=== PATIENT | female | born 1995 | race Caucasian/White ===

== ENCOUNTER 2016-08-09 14:02 | Emergency (ER) | payer MEDICAID, OTHER ==
[~2016-08-09] VITALS: Ht 165.1 cm; Wt 66.0 kg
[2016-08-09 14:11] VITALS: Ht 165.1 cm; Wt 66.0 kg
[2016-08-09] MEDS ORDERED: ONDANSETRON 4 MG INJ IV STA (14:58)
[2016-08-09] MEDS ORDERED: KETOROLAC 30 MG INJ IV STA (14:58)
[2016-08-09 15:40] LABS: ADD SCAN DIFF NO
[2016-08-09 15:42] LABS: BASOPHILS % 0.2 % (0.0-2.0); EOSINOPHILS # 0.1 10^3/ul (0.0-0.5); EOSINOPHILS % 1.2 % (0.0-7.0); HEMATOCRIT 38.9 % (37.0-47.0); HEMOGLOBIN 13.4 g/dl (12.0-16.0); LYMPHOCYTES # 1.7 10^3/ul (0.8-2.9); LYMPHOCYTES % 20.8 % (15.0-51.0); MEAN CORPUSCULAR HEMOGLOBIN 30.7 pg (29.0-33.0); MEAN CORPUSCULAR HGB CONC 34.4 g/dl (32.0-37.0); MEAN CORPUSCULAR VOLUME 89.2 fl (82.0-101.0); MEAN PLATELET VOLUME 11.5 fl (7.4-10.4); MONOCYTE # 0.6 10^3/ul (0.3-0.9); MONOCYTES % 7.4 % (0.0-11.0); NEUTROPHIL # 5.7 10^3/ul (1.6-7.5); NEUTROPHILS % 70.2 % (39.0-77.0); PLATELET COUNT 221 10^3/UL (140-415); RED BLOOD COUNT 4.36 10^6/ul (4.20-5.40); RED CELL DISTRIBUTION WIDTH 13.1 % (11.5-14.5); WHITE BLOOD COUNT 8.2 10^3/ul (4.8-10.8)
[2016-08-09 15:52] LABS: ADD UMIC YES; URINE BILIRUBIN (Dip) NEGATIVE (NEGATIVE); URINE BLOOD (Dip) NEGATIVE (NEGATIVE); URINE COLOR LT. YELLOW (YELLOW); URINE GLUCOSE (Dip) NEGATIVE (NEGATIVE); URINE KETONES (Dip) NEGATIVE (NEGATIVE); URINE LEUKOCYTE ESTERASE (Dip) 1+ (NEGATIVE); URINE NITRITE (Dip) NEGATIVE (NEGATIVE); URINE TOTAL PROTEIN (Dip) TRACE (NEGATIVE); URINE UROBILINOGEN (Dip) 0.2 E.U./dL (0.1-1.0)
[2016-08-09 16:05] LABS: ALBUMIN 4.4 g/dl (3.3-4.9)
[2016-08-09 16:06] LABS: POTASSIUM 3.9 mmol/L (3.5-5.1)
[2016-08-09 16:08] LABS: BILIRUBIN,INDIRECT 0.3 mg/dl (0-1.1); BILIRUBIN,TOTAL 0.3 mg/dl (0.2-1.3); CREATININE 0.63 mg/dl (0.44-1.00)
[2016-08-09 16:09] LABS: ALBUMIN/GLOBULIN RATIO 1.22; CALCIUM 9.5 mg/dl (8.4-10.2)
[2016-08-09 16:19] LABS: SQUAMOUS EPITHELIAL CELL,UR MANY
[2016-08-09 16:20] LABS: BACTERIA,URINE MODERATE; URINE RBCS 0-2 /HPF (0)
[2016-08-09] MEDS ORDERED: NITR-58 PO (17:04)
[2016-08-09] MEDS ORDERED: ONDA4TAB14 PO (17:05)
--- NOTE | 2016-08-09 17:17 | ERD ---
ER Documentation Chief Complaint Date/Time DATE: 08/09/16 TIME: 17:13 Chief Complaint RIGHT LOWER QUADARANT PAIN,VOMITING HPI Patient is a 21-year-old female presents to the emergency department with right lower quadrant pain and vomiting. Patient states her symptoms been present for the last 3 days. Patient denies any radiation of pain. Patient states she has been taking ibuprofen with no alleviation of symptoms. Patient does report some urinary frequency and urgency. Patient denies any pain with bowel movements. Patient reports daily bowel movements. Patient reports chills however she denies any fevers. Patient denies any flank pain. No Recent travel. No sick contacts. LMP= 1 week ago. ROS All systems reviewed and are negative except as per history of present illness. Medications Home Meds Active Scripts Ondansetron (Ondansetron Odt) 4 Mg Tab.rapdis, 4 MG PO Q6H Y for NAUSEA AND/OR VOMITING, #10 TAB Prov:DOLLY LYONS PA-C 08/09/16 Nitrofurantoin Monohyd Macrocr* (Macrobid*) 100 Mg Capsr, 100 MG PO BID for 5 Days, CAP Prov:DOLLY LYONS PA-C 08/09/16 Allergies Allergies: Coded Allergies: No Known Allergy (Unverified , 08/09/16) PMhx/Soc Medical and Surgical Hx: pt denies Medical Hx, pt denies Surgical Hx Hx Alcohol Use: No Hx Substance Use: No Hx Tobacco Use: No Smoking Status: Never smoker Physical Exam Vitals Vital Signs Date Time Temp Pulse Resp B/P Pulse Ox O2 Delivery O2 Flow Rate FiO2 08/09/16 14:11 98.4 76 18 125/66 98 Physical Exam GENERAL: Well-developed, well-nourished female. Appears in no acute distress. HEAD: Normocephalic, atraumatic. EYES: Pupils are equally reactive bilaterally. EOMs grossly intact. No conjunctival erythema. ENT: Moist mucous membranes. No uvula deviation. No kissing tonsils. NECK: Supple. No meningismus. Normal range of motion of the neck. LUNG: Clear to auscultation bilaterally. No rhonchi, wheezing, rales or coarse breath sounds. HEART: Regular rate and rhythm. No murmurs, rubs or gallops. ABDOMEN: No scars, ecchymosis or rashes noted. Soft and nondistended. Tenderness to palpation in bilateral pelvic regions. Positive bowel sounds in all four quadrants. No rebound tenderness, no guarding. (-) McBurney's point tenderness. No CVA tenderness. EXTREMITIES: Equal pulses bilaterally. No peripheral clubbing, cyanosis or edema. No unilateral leg swelling. NEUROLOGIC: Alert and oriented. Moving all four extremities without any difficulty. Normal speech. Steady gait. SKIN: Normal color. Warm and dry. No rashes or lesions. Result Diagram: 08/09/16 1500 08/09/16 1500 Results 24 hrs Laboratory Tests Test 08/09/16 15:00 08/09/16 15:13 White Blood Count 8.210^3/ul Red Blood Count 4.3610^6/ul Hemoglobin 13.4g/dl Hematocrit 38.9% Mean Corpuscular Volume 89.2fl Mean Corpuscular Hemoglobin 30.7pg Mean Corpuscular Hemoglobin Concent 34.4g/dl Red Cell Distribution Width 13.1% Platelet Count 94202^3/UL Mean Platelet Volume 11.5fl Neutrophils % 70.2% Lymphocytes % 20.8% Monocytes % 7.4% Eosinophils % 1.2% Basophils % 0.2% Nucleated Red Blood Cells % 0.0/100WBC Neutrophils # 5.710^3/ul Lymphocytes # 1.710^3/ul Monocytes # 0.610^3/ul Eosinophils # 0.110^3/ul Basophils # 0.010^3/ul Nucleated Red Blood Cells # 0.010^3/ul Sodium Level 141mmol/L Potassium Level 3.9mmol/L Chloride Level 103mmol/L Carbon Dioxide Level 26mmol/L Anion Gap 16 Blood Urea Nitrogen 11mg/dl Creatinine 0.63mg/dl Glucose Level 93mg/dl Calcium Level 9.5mg/dl Total Bilirubin 0.3mg/dl Direct Bilirubin 0.00mg/dl Indirect Bilirubin 0.3mg/dl Aspartate Amino Transf (AST/SGOT) 16IU/L Alanine Aminotransferase (ALT/SGPT) 17IU/L Alkaline Phosphatase 63IU/L Total Protein 8.0g/dl Albumin 4.4g/dl Globulin 3.60g/dl Albumin/Globulin Ratio 1.22 Lipase 115U/L Urine Color LT. YELLOW Urine Clarity CLOUDY Urine pH 6.0 Urine Specific [place] 1.025 Urine Ketones NEGATIVE Urine Nitrite NEGATIVE Urine Bilirubin NEGATIVE Urine Urobilinogen 0.2 E.U./dL Urine Leukocyte Esterase 1+ Urine Microscopic RBC 0-2/HPF Urine Microscopic WBC 10-25/HPF Urine Squamous Epithelial Cells MANY Urine Bacteria MODERATE Urine Hemoglobin NEGATIVE Urine Glucose NEGATIVE% Urine Total Protein TRACE Current Medications Medications (Trade) Dose Ordered Sig/Shirlene Route PRN Reason Start Time Stop Time Status Last Admin Dose Admin Ondansetron HCl (Zofran Inj) 4 mg ONCE STAT IV 08/09/16 14:58 08/09/16 15:02 DC 08/09/16 15:17 Ketorolac Tromethamine (Toradol) 30 mg ONCE STAT IV 08/09/16 14:58 08/09/16 15:02 DC 08/09/16 15:17 Procedures/MDM ED COURSE: The patient was stable throughout ED course. I kept the patient and/or family informed of laboratory and diagnostic imaging results throughout the ED course. DIAGNOSTIC IMAGING: Read by radiologist. Patient: ERIK RICH : 1995 Age: 21 Sex: F MR #: [id number] DOS: 08/09/16 0000 Ordering MD: DOLLY LYONS PA-C Location: [facility] Room/Bed: PROCEDURE: US Pelvis CLINICAL INDICATION: Pelvic pain TECHNIQUE: Sonographic evaluation of the pelvis was performed utilizing both transabdominal and transvaginal technique. Curved array transabdominal transducer technique as well as a high frequency endovaginal probe was utilized. Images were reviewed on the high-resolution PACS workstation. COMPARISON: No prior studies are available for comparison. FINDINGS: The uterus is normal in size, echogenicity, and morphology measuring 7.5 x 4.7 x 6.1 cm in dimension. The uterus is retroverted in position. The endometrium measures x in diameter. There is an IUD in place within the body/ fundal portion of the endometrium, in perfect location. The right ovary measures 3.2 x 2.0 x 2.9 cm in dimension. The left ovary measures 3.3 x 1.9 x 2.2 cm in dimension. The ovaries are symmetric in size, echogenicity, and morphology. There are no adnexal masses. There is no significant free fluid in the pelvis. No other incidental abnormality is identified. IMPRESSION: 1. IUD in place, in good location. 2. Otherwise, normal pelvic ultrasound. RPTAT: PP .Luis Diaz MD, Date Time Electronically viewed and signed by .Luis Diaz MD, MD on 08/09/2016 17:48 .B/ CC: DOLLY LYONS PA-C MEDICAL DECISION MAKING: This is a 21 year old female who presents with lower abdominal pain and nausea x 3 days. Vital signs were reviewed. Patient was afebrile. CBC showed no evidence of systemic infection or severe anemia. CMP showed no evidence of electrolyte abnormalities, severe acidosis, alkalosis, renal failure , or liver disease. Lipase showed no evidence of acute pancreatitis. UA showed + leukocyte esterase and WBC. Sample may be contaminated, however given that the patient is symptomatic at this time, urine likely + for infection. Urine test was negative. Given these findings, the patient;s presentation is most consistent with urinary tract infection. I have a much lower clinical concern for pyelonephritis, nephrolithiasis, appendicitis, diverticulitis, constipation, urethritis, , ectopic , PID, ovarian torsion, or tubo-ovarian abscess. PRESCRIPTIONS: Macrobid, Zofran DISCHARGE: At this time, patient is stable for discharge and outpatient management. I have instructed the patient to follow-up with his/her primary care physician in 1-2 days. Patient should repeat UA in 2 weeks to check for resolution of urinary tract infection. If symptoms persist, patient may need to see a specialist for further examinations and testing. I have instructed the patient to promptly return to the ER at any time for any new or worsening symptoms including increased pain, fever, nausea, vomiting, urinary changes or weakness. The patient and/or family expressed understanding of and agreement with this plan. All questions were answered. Home care instructions were provided. Departure Diagnosis: Primary Impression: UTI (urinary tract infection) Urinary tract infection type: site unspecified Hematuria presence: without hematuria Qualified Code: N39.0 - Urinary tract infection without hematuria, site unspecified Condition: Stable Patient Instructions: Understanding Urinary Tract Infections (UTIs) Additional Instructions: Call your primary care doctor TOMORROW for an appointment during the next 1-2 days.See the doctor sooner or return here if your condition worsens before your appointment time. DOLLY LYONS PA-C Aug 09, 2016 17:17
--- NOTE | 2016-08-09 17:48 | RADRPT ---
PROCEDURE: US Pelvis CLINICAL INDICATION: Pelvic pain TECHNIQUE: Sonographic evaluation of the pelvis was performed utilizing both transabdominal and tr ansvaginal technique. Curved array transabdominal transducer technique as well as a high frequency endovaginal probe was utilized. Images were reviewed on the high-resolution PACS workstation. COMPARISON: No prior studies are available for comparison. FINDINGS: The uterus is normal in size, echogenicity, and morphology measuring 7.5 x 4.7 x 6.1 cm in dimension . The uterus is retroverted in position. The endometrium measures x in diameter. There is an IUD in place within the body/fundal portion of the endometrium, in perfect location. The right ovary measures 3.2 x 2.0 x 2.9 cm in dimension. The left ovary measures 3.3 x 1.9 x 2.2 c m in dimension. The ovaries are symmetric in size, echogenicity, and morphology. There are no adne xal masses. There is no significant free fluid in the pelvis. No other incidental abnormality is id entified. IMPRESSION: 1. IUD in place, in good location. 2. Otherwise, normal pelvic ultrasound. RPTAT: PP .Luis Diaz MD, Date Time Electronically viewed and signed by .Luis Diaz MD, on 08/09/2016 17:48 .B/
== END 2016-08-09 17:43 | disposition home or self-care (01) ==
LOC: FTE 14:02
DX: N39.0 Urinary tract infection, site not specified (principal); R11.10 Vomiting, unspecified; R10.2 Pelvic and perineal pain
CPT/HCPCS: 76830; 76856; 80053; 81001; 83690; 85025; J1885; J2405; 36415; 81003; 96374; 96375

== ENCOUNTER 2016-12-16 00:41 | Emergency (ER) | payer SELFPAY ==
[~2016-12-16] VITALS: Ht 162.6 cm; Wt 58.0 kg
[~2016-12-16 00:41] MED LIST: NITR-58 PO; ONDA4TAB14 PO
[2016-12-16 00:51] VITALS: Ht 162.6 cm; Wt 58.0 kg
[2016-12-16 01:57] LABS: URINE BLOOD (Dip) POC Negative (NEGATIVE)
--- NOTE | 2016-12-16 02:09 | ERD ---
ER Documentation Chief Complaint Date/Time DATE: 12/16/16 TIME: 02:07 Chief Complaint bib self, cc: dysuria and urinary frequency, "I feel like I have a UTI" HPI 21-year-old female presents here in emergency department for complaints of urinary urgency and frequency dysuria that started today. Patient is complaining of pain burning pain 4/10 scale, worse upon urination. Patient denies any hematuria. Patient denies any flank pain. Patient denies any fever or chills. Patient denies any abdominal pain. ROS All systems reviewed and are negative except as per history of present illness. Medications Home Meds Active Scripts Ondansetron (Ondansetron Odt) 4 Mg Tab.rapdis, 4 MG PO Q6H Y for NAUSEA AND/OR VOMITING, #10 TAB Prov:DOLLY LYONS PA-C 08/09/16 Nitrofurantoin Monohyd Macrocr* (Macrobid*) 100 Mg Capsr, 100 MG PO BID for 5 Days, CAP Prov:DOLLY LYONS PA-C 08/09/16 Allergies Allergies: Coded Allergies: No Known Allergy (Unverified , 08/09/16) PMhx/Soc Medical and Surgical Hx: pt denies Medical Hx, pt denies Surgical Hx History of Surgery: No Anesthesia Reaction: No Hx Neurological Disorder: No Hx Respiratory Disorders: No Hx Cardiac Disorders: No Hx Psychiatric Problems: No Hx Miscellaneous Medical Probl: No Hx Alcohol Use: No Hx Substance Use: No Hx Tobacco Use: No Smoking Status: Never smoker FmHx Family History: No coronary disease, No diabetes, No other Physical Exam Vitals Vital Signs Date Time Temp Pulse Resp B/P Pulse Ox O2 Delivery O2 Flow Rate FiO2 12/16/16 00:51 99.3 75 18 121/61 99 Physical Exam GENERAL: The patient is well developed and appropriate for usual state of health, in no apparent distress. CHEST: Clear to auscultation bilaterally. There are no rales, wheezes or rhonchi. HEART: Regular rate and rhythm. No murmurs, clicks, rubs or gallops. No S3 or S4. ABDOMEN: Soft, nontender and nondistended. Good bowel sounds. No rebound or guarding. No gross peritonitis. No gross organomegaly or masses. No Hassan sign or McBurney point tenderness. BACK: No midline or flank tenderness. EXTREMITIES: Equal pulses bilaterally. There is no peripheral clubbing, cyanosis or edema. No focal swelling or erythema. Full range of motion. Grossly neurovascularly intact. NEURO: Alert and oriented. Cranial nerves 2-12 intact. Motor strength in all 4 extremities with 5/5 strength. Sensation grossly intact. Normal speech and gait. SKIN: There is no apparent rash or petechia. The skin is warm and dry. HEMATOLOGIC AND LYMPHATIC: There is no evidence of excessive bruising or lymphedema. No gross cervical, axillary, or inguinal lymphadenopathy. Results 24 hrs Laboratory Tests Test 12/16/16 02:03 Bedside Urine pH (LAB) 7.0 Bedside Urine Protein (LAB) Negative Bedside Urine Glucose (UA) Negative Bedside Urine Ketones (LAB) Negative Bedside Urine Blood Negative Bedside Urine Nitrite (LAB) Negative Bedside Urine Leukocyte Esterase (L 1+ Procedures/MDM Medical Decision Making: Patients symptoms are consistent with urinary tract infection. There is low suspicion for pyelonephritis. There is low suspicion for abdominal emergencies at this time. Patients abdominal exam is normal. There is low suspicion for sepsis. Patient appears well and is hemodynamically stable. Disposition: Home. Stable Prescription ciprofloxacin, pyridium Instructions: Patient is advised to take medications as prescribed. Patient is advised to rest, increase fluid intake and do good perineal hygiene. Patient is advised that if symptoms are worse, severe abdominal pain, uncontrolled vomiting , high fever, severe flank pain, worst signs and symptoms, to return to the emergency department immediately. Otherwise, patient can follow up with primary care doctor in 5-7 days. Departure Diagnosis: Primary Impression: UTI (urinary tract infection) Urinary tract infection type: acute cystitis Hematuria presence: without hematuria Qualified Code: N30.00 - Acute cystitis without hematuria Condition: Stable Patient Instructions: Understanding Urinary Tract Infections (UTIs) Additional Instructions: Patient is advised to take medications as prescribed. Patient is advised to rest, increase fluid intake and do good perineal hygiene. Patient is advised that if symptoms are worse, severe abdominal pain, uncontrolled vomiting, high fever, severe flank pain, worst signs and symptoms, to return to the emergency department immediately. Otherwise, patient can follow up with primary care doctor in 5-7 days. JUSTA VÁZQUEZ NP Dec 16, 2016 02:09
[2016-12-16] MEDS ORDERED: PHEN-538 PO (02:13)
[2016-12-16] MEDS ORDERED: CIPR500T4 PO (02:13)
== END 2016-12-16 02:30 | disposition home or self-care (01) ==
LOC: FTE 00:41
DX: N30.00 Acute cystitis without hematuria (principal)
CPT/HCPCS: 81003; 99283

== ENCOUNTER 2017-04-13 19:10 | Emergency (ER) | payer MEDICAID, OTHER ==
[~2017-04-13] VITALS: Ht 162.6 cm; Wt 69.9 kg
[~2017-04-13 19:10] MED LIST changes: +CIPR500T4 PO; +PHEN-538 PO
[2017-04-13 19:13] VITALS: Ht 162.6 cm; Wt 69.9 kg
[2017-04-13] MEDS ORDERED: ONDANSETRON (ODT) 4 MG TAB ODT STA (20:44)
[2017-04-13] MEDS ORDERED: ACETAMINOPHEN 325 MG TAB PO ONE (21:00)
[2017-04-13 21:09] LABS: URINE BLOOD (Dip) POC Negative (NEGATIVE)
[2017-04-13] MEDS ORDERED: CEPH-443 PO (21:27)
[2017-04-13] MEDS ORDERED: ONDA4TAB14 PO (21:27)
--- NOTE | 2017-04-13 21:34 | ERD ---
ER Documentation Chief Complaint Chief Complaint pelvic pain x1 week, diarhea HPI 21-year-old female presenting to the emergency department complaining of nausea , nonbilious nonbloody vomiting and diarrhea for the past week. Patient states that the vomiting has gotten better however she still continues to have diarrhea. She denies any fevers. She admits to having mild dysuria. Denies any vaginal discharge, flank pain ROS All systems reviewed and are negative except as per history of present illness. Medications Home Meds Active Scripts Cephalexin* (Keflex*) 500 Mg Capsule, 500 MG PO BID for 5 Days, CAP Prov:VANNESSA AZAR PA-C 04/13/17 Ondansetron (Ondansetron Odt) 4 Mg Tab.rapdis, 4 MG PO Q6H Y for NAUSEA AND/OR VOMITING, #20 TAB Prov:VANNESSA AZAR PA-C 04/13/17 Ciprofloxacin Hcl* (Ciprofloxacin Hcl*) 500 Mg Tablet, 500 MG PO BID for 10 Days , TAB Prov:JUSTA VÁZQUEZ NP 12/16/16 Phenazopyridine Hcl* (Pyridium*) 200 Mg Tab, 200 MG PO TID Y for URINARY PAIN, # 6 TAB Prov:JUSTA VÁZQUEZ NP 12/16/16 Ondansetron (Ondansetron Odt) 4 Mg Tab.rapdis, 4 MG PO Q6H Y for NAUSEA AND/OR VOMITING, #10 TAB Prov:DOLLY LYONS PA-C 08/09/16 Nitrofurantoin Monohyd Macrocr* (Macrobid*) 100 Mg Capsr, 100 MG PO BID for 5 Days, CAP Prov:DOLLY LYONS PA-C 08/09/16 Allergies Allergies: Coded Allergies: No Known Allergy (Unverified , 08/09/16) PMhx/Soc History of Surgery: No Anesthesia Reaction: No Hx Neurological Disorder: No Hx Respiratory Disorders: No Hx Cardiac Disorders: No Hx Psychiatric Problems: No Hx Miscellaneous Medical Probl: No Hx Alcohol Use: No Hx Substance Use: No Hx Tobacco Use: No Smoking Status: Never smoker Physical Exam Vitals Vital Signs Date Time Temp Pulse Resp B/P Pulse Ox O2 Delivery O2 Flow Rate FiO2 04/13/17 19:13 98.8 95 20 132/95 100 Physical Exam GENERAL: well-developed/well-nourished, in no apparent distress, non-toxic appearing HENT: NC/AT, moist mucous membranes EYES: Conjunctiva normal NECK: Supple, no lymphadenopathy PULM: CTA bilaterally, no rales, rhonchi, or wheezing heard CV: Normal S1S2, RRR, good capillary refill GI: Soft, non-distended, nontender Normal bowel sounds, no masses or organomegaly felt on exam No gross peritonitis, no bruits Negative Rovsing, negative Hassan, negative McBurney's point, Negative CVAT BACK: No masses EXT: No clubbing, cyanosis, or edema NEURO: Alert and Orientated SKIN: Intact, normal turgor PSYCH: Normal mood and mentation Results 24 hrs Laboratory Tests Test 04/13/17 21:10 Bedside Urine pH (LAB) 5.5 Bedside Urine Protein (LAB) Negative Bedside Urine Glucose (UA) Negative Bedside Urine Ketones (LAB) Negative Bedside Urine Blood Negative Bedside Urine Nitrite (LAB) Negative Bedside Urine Leukocyte Esterase (L 1+ Current Medications Medications (Trade) Dose Ordered Sig/Shirlene Route PRN Reason Start Time Stop Time Status Last Admin Dose Admin Ondansetron HCl (Zofran Odt) 4 mg ONCE STAT ODT 04/13/17 20:44 04/13/17 20:46 DC 04/13/17 20:56 Acetaminophen (Tylenol Tab) 650 mg ONCE ONCE PO 04/13/17 21:00 04/13/17 21:01 DC 04/13/17 20:56 Procedures/MDM This is a 21-year-old female presenting to the emergency department with nausea , vomiting diarrhea which is likely due to a viral gastroenteritis. Patient did not have any evidence of acute abdomen. She did have 1+ leukocyte esterase on urinalysis along with mild dysuria therefore I will give her Keflex for a urinary tract infection. In the ED, patient was given Zofran and she passed a fluid challenge test. She stable to be discharged home to follow-up with primary care physician Departure Diagnosis: Primary Impression: Vomiting and diarrhea Additional Impression: UTI (urinary tract infection) Condition: Stable Patient Instructions: Understanding Urinary Tract Infections (UTIs), Self-Care for Vomiting and Diarrhea, Diet, Vomiting Or Diarrhea [6Yr-Adult] Additional Instructions: Visite a [facility] mdico maana para un EXAMEN.Regrese a estas instalaciones si no se mejora yeimy esperbamos o yeimy le dijimos. Minden toda la medicina [place] y yeimy se le indic. Regrese a estas instalaciones si no se mejora yeimy esperbamos o yeimy le dijimos. VANNESSA AZAR PA-C Apr 13, 2017 21:34
== END 2017-04-13 22:14 | disposition home or self-care (01) ==
LOC: FTE 19:10
DX: N39.0 Urinary tract infection, site not specified (principal); R11.10 Vomiting, unspecified; R19.7 Diarrhea, unspecified; R10.2 Pelvic and perineal pain
CPT/HCPCS: 81003; Z7502; Z7610; 99284

== ENCOUNTER 2017-10-28 23:39 | Emergency (ER) | END 2017-10-29 02:50 | disposition home or self-care (01) ==